=== PATIENT | male | born 1950 | race Caucasian/White ===

== ENCOUNTER 2017-05-13 07:11 | Day surgery (SDC) | payer MEDICARE, BC ==
[2017-05-07 13:08] VITALS: BMI 35.4
[~2017-05-13 07:11] MED LIST: DEXAMETHASONE SOD PHOSPHATE 10 MG/ML 1 ML VIAL IV ONE; HEPARIN SODIUM,PORCINE 5,000 UNIT/ML 1 ML VIAL SQ ONE; MIDAZOLAM 2 MG/2 ML VIAL IV PRN; ONDANSETRON 4 MG/2 ML VIAL IVP ONE; ceFAZolin 2 GM in SODIUM CHLORIDE 0.9% 100 ML IVPB ONE
[2017-05-13] MEDS: LACTATED RINGERS 1,000 ML IV SCH ×2 (07:59→08:25)
[2017-05-13] MEDS ORDERED: PROPOFOL 10 MG/ML 20 ML VIAL IV ONE (08:31)
[2017-05-13] MEDS ORDERED: HEPARIN SODIUM,PORCINE 5,000 UNIT/ML 1 ML VIAL SQ ONE (08:31)
[2017-05-13] MEDS ORDERED: LIDOCAINE 1% INJ 10MG/ML (20 ML MDV) ONE (08:31)
[2017-05-13] MEDS ORDERED: fentaNYL (PF) 50 MCG/ML 2 ML AMP ONE (08:31)
[2017-05-13] MEDS ORDERED: MIDAZOLAM 2 MG/2 ML VIAL ONE (08:31)
[2017-05-13] MEDS ORDERED: SUCCINYLCHOLINE CHLORIDE 100 MG/5 ML SYR IV ONE (08:31)
--- NOTE | 2017-05-13 09:23 | P.OP ---
Date of Procedure: 05/13/17 Preoperative Diagnosis: chronic right breast abcess, lissette-areolar area Postoperative Diagnosis: Same Procedure(s) Performed: Wide debridement right breast chronic abscess Implants: Indications for Procedure: Operative Findings: Description of Procedure: Mr. Zuniga is a 66-year-old white male who has a chronic draining breast abscess in the lissette-aerolar region. He presents for wide debridement of this area. He understands that if this recurs further surgery may be indicated. Patient was taken to the operating room and following induction of anesthesia the right breast was prepped and draped in a sterile fashion. Wide excision of the area of abscess was performed. This was extended up into the aerola and nipple. This was disected down to the muscle of the chest wall. After being assured that the areas of induration were excised the wound was cultured and well irrigated. The deep tissues were closed with 3-0 Vicryl suture. The distal portion of the skin was closed with a 4-0 Monocryl. The wound was packed with quarter-inch iodoform. The skin was reinforced with 4-0 nylon suture. All instrument and sponge counts were correct at the end of the case. The patient tolerated the procedure in stable condition.
--- NOTE | 2017-05-13 09:28 | P.OP ---
Date of Procedure: 05/13/17 Preoperative Diagnosis: Chronic right breast abscess Postoperative Diagnosis: Same Procedure(s) Performed: Debridement chronic right breast abscess Implants: Anesthesia: ALENA Surgeon: Seema Schafer Estimated Blood Loss (ml): 5 IV fluids (ml): 700 Pathology: other (Breast tissue) Condition: stable Disposition: PACU Indications for Procedure: Chronic right breast abscess Operative Findings: Indurated tissue right breast periareolar area Description of Procedure: Patient was taken to the operating room and the right breast was prepped and draped in a sterile fashion. A wedge excision of the area of chronic induration was performed. This was extended into the areola and the under the nipple. The inferior dissection was carried down to the muscle of the chest wall. The indurated tissue was grossly excised. Cultures were obtained. The would was well irrigated. After we were assured that hemostasis was attained the deep tissues were closed with a 3-0 Vicryl suture. This is followed by closure of a portion of the skin with a 4-0 Monocryl and 4-0 nylon. An opening was left which was packed with quarter-inch iodoform. The patient tolerated the procedure in stable condition. All instrument and sponge counts were correct at the end of the case.
[2017-05-13 09:30] VITALS: TEMP 97.8
--- NOTE | 2017-05-13 09:30 | P.DS ---
Providers Attending physician: Seema Schafer Primary care physician: Felisa Garcia Plan - Discharge Summary New Discharge Prescriptions: New HYDROcodone/APAP 5-325MG [[place] 5] 1 - 2 each PO Q4H PRN #20 tab PRN Reason: Pain No Action Simvastatin [Zocor] 80 mg PO HS Multivitamin [Men's Multi-Vitamin] 1 tab PO DAILY Aspirin 1 tab PO Q48H Ubidecarenone [Co Q-10] 100 mg PO DAILY Loratadine [Claritin] 10 mg PO DAILY Cholecalciferol [Vitamin D3] 5,000 unit PO DAILY [place]-3/Dha/Epa/Fish Oil [Fish Oil 500 mg Softgel] 1 each PO HS Mometasone/Formoterol [Dulera 200 Mcg/5 Mcg Inhaler] 2 puff INHALATION BID PRN PRN Reason: COPD SX amLODIPine BESYLATE [Norvasc] 10 mg PO BID Doxycycline Hyclate 100 mg PO BID Losartan Potassium 1 tab PO HS Discharge Medication List Aspirin 1 tab PO Q48H 03/15/15 [History] Multivitamin [Men's Multi-Vitamin] 1 tab PO DAILY 03/15/15 [History] Simvastatin [Zocor] 80 mg PO HS 03/15/15 [History] Cholecalciferol [Vitamin D3] 5,000 unit PO DAILY 11/22/16 [History] Loratadine [Claritin] 10 mg PO DAILY 11/22/16 [History] Mometasone/Formoterol [Dulera 200 Mcg/5 Mcg Inhaler] 2 puff INHALATION BID PRN 11/22/16 [History] [place]-3/Dha/Epa/Fish Oil [Fish Oil 500 mg Softgel] 1 each PO HS 11/22/16 [ History] Ubidecarenone [Co Q-10] 100 mg PO DAILY 11/22/16 [History] Doxycycline Hyclate 100 mg PO BID 05/07/17 [History] amLODIPine BESYLATE [Norvasc] 10 mg PO BID 05/07/17 [History] HYDROcodone/APAP 5-325MG [[place] 5] 1 - 2 each PO Q4H PRN #20 tab 05/13/17 [Rx] Losartan Potassium 1 tab PO HS 05/13/17 [History] Follow up Appointment(s)/Referral(s): Seema Schafer MD [STAFF PHYSICIAN] - 1 Week Activity/Diet/Wound Care/Special Instructions: 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
[2017-05-13] MEDS: HYDROmorphone 1 MG/ML 1 ML SYRINGE IVP PRN ×2 (09:39→09:45)
[2017-05-13] MEDS ORDERED: LACTATED RINGERS 1,000 ML IV ONE (09:52)
[2017-05-13 10:17] VITALS: RESP 16
[2017-05-13 10:48] VITALS: BP 130/64; PULSE 81
== END 2017-05-13 10:56 | disposition home or self-care (01) ==
LOC: OR 07:11
PROVIDERS: ATTEND Surgery
DX: N61.1 Abscess of the breast and nipple (principal); N60.31 Fibrosclerosis of right breast; N60.01 Solitary cyst of right breast; E78.5 Hyperlipidemia, unspecified; J44.9 Chronic obstructive pulmonary disease, unspecified; K21.9 Gastro-esophageal reflux disease without esophagitis; I10 Essential (primary) hypertension; G47.33 Obstructive sleep apnea (adult) (pediatric); F17.200 Nicotine dependence, unspecified, uncomplicated; Z79.2 Long term (current) use of antibiotics; Z79.82 Long term (current) use of aspirin; Z79.51 Long term (current) use of inhaled steroids; Z79.899 Other long term (current) drug therapy
CPT/HCPCS: 88304; 87070; 87205; 87075; 19020; J2250; J1644; J1100; J0690; J2405; J2001; J3010; J1170; J0330; J2704

== ENCOUNTER 2019-05-08 13:27 | Emergency (ER) | payer MEDICARE, BC ==
[2019-05-08 14:02] VITALS: RESP 18; TEMP 97.9
[2019-05-08] MEDS ORDERED: KETOROLAC 30 MG/ML 1 ML VIAL IM STA (14:33)
--- NOTE | 2019-05-08 14:56 | ED ---
General Adult HPI - General Chief complaint: Urogenital Stated complaint: Flank pain Time Seen by Provider: 05/08/19 14:06 Source: patient Mode of arrival: ambulatory Limitations: no limitations - History of Present Illness Initial comments: Patient is a 68-year-old male presents emergency Department with a chief complaint of kidney stones. Patient reports a history of kidney stones with the most recent case 1 year ago. Patient reports she developed right left flank pain earlier this morning that is sharp in nature and has increased in severity throughout the day. Patient reports the pain radiates along to the right-sided groin region. Patient also reports obstructive urinary symptoms but denies hematuria. Patient reports increased urgency but is only able to urinate small amounts. Patient denies nausea, vomiting or diarrhea. - Related Data Home Medications Medication Instructions Recorded Confirmed Aspirin 1 tab PO Q48H 03/15/15 05/13/17 Multivitamin [Men's Multi-Vitamin] 1 tab PO DAILY 03/15/15 05/13/17 Simvastatin [Zocor] 80 mg PO HS 03/15/15 05/13/17 Cholecalciferol [Vitamin D3] 5,000 unit PO DAILY 11/22/16 05/13/17 Loratadine [Claritin] 10 mg PO DAILY 11/22/16 05/13/17 Mometasone/Formoterol [Dulera 200 2 puff INHALATION BID PRN 11/22/16 05/13/17 Mcg/5 Mcg Inhaler] [place]-3/Dha/Epa/Fish Oil [Fish Oil 1 each PO HS 11/22/16 05/13/17 500 mg Softgel] Ubidecarenone [Co Q-10] 100 mg PO DAILY 11/22/16 05/13/17 Doxycycline Hyclate 100 mg PO BID 05/07/17 05/13/17 amLODIPine BESYLATE [Norvasc] 10 mg PO BID 05/07/17 05/13/17 Losartan Potassium 1 tab PO HS 05/13/17 05/13/17 Previous Rx's Medication Instructions Recorded HYDROcodone/APAP 5-325MG [[place] 5] 1 - 2 each PO Q4H PRN #20 tab 05/13/17 Hydrocodone/Acetaminophen [[place] 1 tab PO Q6HR PRN #12 tab 05/08/19 5-325] Tamsulosin [Flomax] 0.4 mg PO DAILY #14 cap 05/08/19 Allergies Allergy/AdvReac Type Severity Reaction Status Date / Time No Known Allergies Allergy Verified 05/08/19 14:01 Review of Systems ROS Statement: Those systems with pertinent positive or pertinent negative responses have been documented in the HPI. ROS Other: All systems not noted in ROS Statement are negative. Past Medical History Past Medical History: Cancer, COPD, Eye Disorder, GERD/Reflux, Hearing Disorder / Deafness, Hyperlipidemia, Hypertension, Prostate Disorder, Skin Disorder, Sleep Apnea/CPAP/BIPAP Additional Past Medical History / Comment(s): HX SKIN CA, NEAR LT TEAR DUCT; Kidney Stones; BPH. NO TX FOR SLEEP [place]NEA. [place], LT WORSE THAN RT. RT BREAST WOUND, RECURRENT. History of Any Multi-Drug Resistant Organisms: None Reported Past Surgical History: Appendectomy, Breast Surgery, Hernia Repair, Tonsillectomy Additional Past Surgical History / Comment(s): "bone chip removed from neck". LT tearduct removed; EXC CATARACT. UPPP. LT BREAST SURG; EXC RT BREAST CYST 04/2016 Past Anesthesia/Blood Transfusion Reactions: Previous Problems w/ Anesthesia, Motion Sickness Additional Past Anesthesia/Blood Transfusion Reaction / Comment(s): VIOLENT, A CHILD ONLY. Past Psychological History: Depression Smoking Status: Current every day smoker Past Alcohol Use History: None Reported Past Drug Use History: None Reported - Past Family History Son(s) Family Medical History: Cancer Additional Family Medical History / Comment(s): LEUKEMIA General Exam - General Exam Comments Initial Comments: General: Well-developed well-nourished distress HEENT: Normocephalic/atraumatic, PERLL, pharynx erythema, swallowing well, EAC no erythema, no exudates, TM clear, no cervical lymph nodes Neck: Supple, nontender, trachea midline Chest/Lungs: Normal respirations, no signs of respiratory distress clear to auscultation bilaterally no wheezes, rales, rhonchi Cardiac: Regular rate and rhythm, normal S1-S2, no murmurs rubs or gallops Abdomen/GI: Negative McBurney point tenderness, negative Rovsing, soft abdomen, right flank pain, mid suprapubic pain, right inguinal pain, no palpable hernia Musculoskeletal: Nontender, full range of motion, no edema, strength equal bilaterally Skin: Warmth, no rashes or lesions, no cyanosis or diaphoresis Neurologic: AAO x 3, CN 2-12 intact, Psychiatric: Mood and affect normal, judgment normal Limitations: no limitations Course Vital Signs 05/08/19 13:59 Temperature 97.9 F Pulse Rate 71 Respiratory 18 Rate Blood Pressure 160/82 O2 Sat by Pulse 94 L Oximetry Medical Decision Making - Lab Data Result diagrams: 05/08/19 14:48 05/08/19 14:48 Lab Results 05/08/19 05/08/19 05/08/19 Range/Units 14:48 14:48 14:48 WBC 13.2 H (3.8-10.6) k/uL RBC 4.75 (4.30-5.90) m/uL Hgb 15.3 (13.0-17.5) gm/dL Hct 45.7 (39.0-53.0) % MCV 96.4 (80.0-100.0) fL MCH 32.3 (25.0-35.0) pg MCHC 33.5 (31.0-37.0) g/dL RDW 14.4 (11.5-15.5) % Plt Count 213 (150-450) k/uL Sodium 142 (137-145) mmol/L Potassium 4.9 (3.5-5.1) mmol/L Chloride 109 H (98-107) mmol/L Carbon Dioxide 23 (22-30) mmol/L Anion Gap 10 mmol/L BUN 13 (9-20) mg/dL Creatinine 1.13 (0.66-1.25) mg/dL Est GFR (CKD-EPI)AfAm 77 (>60 ml/min/1.73 sqM) Est GFR (CKD-EPI)NonAf 66 (>60 ml/min/1.73 sqM) Glucose 99 (74-99) mg/dL Calcium 9.6 (8.4-10.2) mg/dL Total Bilirubin 1.2 (0.2-1.3) mg/dL AST 50 (17-59) U/L ALT 9 L (21-72) U/L Alkaline Phosphatase 140 H (38-126) U/L Total Protein 7.4 (6.3-8.2) g/dL Albumin 4.8 (3.5-5.0) g/dL Urine Color Yellow Urine Appearance Clear (Clear) Urine pH 7.5 (5.0-8.0) Ur Specific [place] 1.021 (1.001-1.035) Urine Protein Trace H (Negative) Urine Glucose (UA) Negative (Negative) Urine Ketones Negative (Negative) Urine Blood Large H (Negative) Urine Nitrite Negative (Negative) Urine Bilirubin Negative (Negative) Urine Urobilinogen <2.0 (<2.0) mg/dL Ur Leukocyte Esterase Negative (Negative) Urine RBC >182 H (0-5) /hpf Urine WBC 1 (0-5) /hpf Urine Mucus Rare H (None) /hpf Disposition Clinical Impression: Kidney stones Disposition: HOME SELF-CARE Condition: Stable Instructions (If sedation given, give patient instructions): Kidney Stones (ED) Additional Instructions: Please follow up with urology. Please take prescribed medication as directed. Please return to emergency department if symptoms worsen. Prescriptions: Tamsulosin [Flomax] 0.4 mg PO DAILY #14 cap Hydrocodone/Acetaminophen [[place] 5-325] 1 tab PO Q6HR PRN #12 tab PRN Reason: Pain Is patient prescribed a controlled substance at d/c from ED?: No Referrals: Felisa Garcia MD [Primary Care Provider] - 1-2 days Toby Carreon MD [STAFF PHYSICIAN] - 1-2 days Time of Disposition: 16:59
[2019-05-08 15:14] LABS: Appearance,Urine Clear (Clear); Bilirubin,Urine Negative (Negative); Blood,Urine Large (Negative); Color,Urine Yellow; Glucose,Urine (UA) Negative (Negative); Ketones,Urine Negative (Negative); Leukocyte Esterase,Urine Negative (Negative); Mucus,Urine Rare /hpf; Nitrite,Urine Negative (Negative); PH, Urine 7.5 (5.0-8.0); Protein,Urine Trace (Negative); RBC,Urine >182 /hpf (0-5); Specific Gravity,Urine 1.021 (1.001-1.035); Urobilinogen,Urine <2.0 mg/dL (<2.0); WBC,Urine 1 /hpf (0-5)
[2019-05-08 15:16] LABS: HCT 45.7 % (39.0-53.0); HGB 15.3 gm/dL (13.0-17.5); MCH 32.3 pg (25.0-35.0); MCHC 33.5 g/dL (31.0-37.0); MCV 96.4 fL (80.0-100.0); Mean Platelet Volume 7.9; Platelet Count 213 k/uL (150-450); RBC 4.75 m/uL (4.30-5.90); RDW 14.4 % (11.5-15.5); WBC 13.2 k/uL (3.8-10.6)
[2019-05-08 15:37] LABS: Albumin 4.8 g/dL (3.5-5.0); Calcium 9.6 mg/dL (8.4-10.2); Total Bilirubin 1.2 mg/dL (0.2-1.3); Total Protein 7.4 g/dL (6.3-8.2)
[2019-05-08 15:39] LABS: Potassium 4.9 mmol/L (3.5-5.1)
--- NOTE | 2019-05-08 16:41 | CT ---
EXAMINATION TYPE: CT abdomen pelvis wo con DATE OF EXAM: 05/08/2019 COMPARISON: 03/15/2015 HISTORY: 68-year-old male Right flank pain and dysuria. CT DLP: 920.3 mGycm. Automated exposure control for dose reduction was used. TECHNIQUE: Contiguous axial scanning of the abdomen and pelvis without IV contrast. Coronal and sagit dodie reconstructions performed. FINDINGS: Heart upper limits of normal in size without pericardial effusion. Some patchy atelectasis or scarrin g at the inferior lingula. No pleural effusion. Small hiatal hernia. Noncontrast appearance of the liver, gallbladder, adrenal glands, spleen, a mildly atrophic pancreas show no gross abnormality. Subtle 1.4 cm hypodense lesion in lateral cortex of the left kidney inadequately characterized, proba ble cortical cyst. Consider ultrasound follow-up nonemergently to attempt further characterization. There are 5 nonobstructing left renal calculi measuring up to 5 mm. Duplex right renal collecting system and ureter seem to come together at the midureter level. There is a punctate 3 mm calculus at the right UVJ with [id number] hydronephrosis and hydrouret er. No dilated small bowel, free fluid, or free air. No mesenteric or retroperitoneal lymphadenopathy. Le ft-sided colonic diverticulosis, greatest in the sigmoid colon. No pericolonic inflammatory change. Bladder nondistended. Prostate gland measures 4.7 cm wide. Circumferential bladder wall thickening. N o abnormal fluid collection the pelvis or pelvic lymphadenopathy. Degenerative changes of the hips. Additional degenerative changes mid to lower lumbar spine. IMPRESSION: 1. A 3 mm calculus at the right UVJ with [id number] obstructive uropathy. Incidental duplex ri ght renal collecting system. The 2 ureters join at the mid ureteric level. 2. Nonobstructing left sided nephrolithiasis measuring up to 5 mm. 3. Left sided colonic diverticulosis, greatest in the sigmoid colon. 4. Circumferential bladder wall thickening may relate to nondistention or cystitis. Clinically corre late. 5. Small hiatal hernia. 6. A 1.4 cm hypodense cortical lesion lateral left kidney. Nonemergent renal ultrasound follow-up ca n attempt further characterization. A cyst is suspected.
[2019-05-08] MEDS ORDERED: ACET/COD 300 MG/30 MG STARTER PACK 6 TAB BTL PO STA (16:57)
[2019-05-08 17:15] VITALS: BP 188/93; PULSE 66
== END 2019-05-08 17:20 | disposition home or self-care (01) ==
LOC: EC 13:27
DX: N20.0 Calculus of kidney (principal); K57.30 Diverticulosis of large intestine without perforation or abscess without bleeding; K44.9 Diaphragmatic hernia without obstruction or gangrene; I10 Essential (primary) hypertension; E78.5 Hyperlipidemia, unspecified; G47.30 Sleep apnea, unspecified; Z79.82 Long term (current) use of aspirin; Z79.899 Other long term (current) drug therapy; Z85.828 Personal history of other malignant neoplasm of skin; Z87.442 Personal history of urinary calculi
CPT/HCPCS: 36415; 80053; 85027; 81001; 74176; 99284; 96372; J1885

== ENCOUNTER 2021-04-23 07:48 | Day surgery (SDC) | payer MEDICARE, BC ==
[2021-04-19 14:10] VITALS: BMI 34.0
[~2021-04-23 07:48] MED LIST changes: -DEXAMETHASONE SOD PHOSPHATE 10 MG/ML 1 ML VIAL IV ONE; -HEPARIN SODIUM,PORCINE 5,000 UNIT/ML 1 ML VIAL SQ ONE; +LACTATED RINGERS 1,000 ML IV SCH; -MIDAZOLAM 2 MG/2 ML VIAL IV PRN; -ONDANSETRON 4 MG/2 ML VIAL IVP ONE; -ceFAZolin 2 GM in SODIUM CHLORIDE 0.9% 100 ML IVPB ONE
[2021-04-23] MEDS ORDERED: LACTATED RINGERS 1,000 ML IV ONE (08:10)
[2021-04-23] MEDS ORDERED: LIDOCAINE 1% (10MG/ML) FOR IV START SQ ONE (08:26)
[2021-04-23 08:28] VITALS: RESP 16; TEMP 98
[2021-04-23] MEDS ORDERED: PROPOFOL 10 MG/ML 20 ML VIAL IV ONE (08:50)
[2021-04-23] MEDS ORDERED: LIDOCAINE 1% INJ 10MG/ML (20 ML MDV) ONE (08:50)
[2021-04-23 09:18] VITALS: BP 132/77; PULSE 71
--- NOTE | 2021-04-23 09:18 | P.PCN ---
Date of Procedure: 04/23/21 Description of Procedure: BRIEF HISTORY: Patient is a 70-year-old male presenting for outpatient colonoscopy for screening for malignant neoplasm of the colon. He reports last colonoscopy was 11 years scope. He denies any change in bowel habits. He does note some intermittent bright red blood per rectum. No family history of colon cancer. PROCEDURE PERFORMED: Colonoscopy with polypectomy. PREOPERATIVE DIAGNOSIS: Screening for malignant neoplasm of the colon, patient reports last colonoscopy 11 years ago. ESTIMATED BLOOD LOSS: Minimal. IV sedation per Anesthesia. PROCEDURE: After informed consent was obtained, the patient, was brought into the endoscopy unit. IV sedation was administered by Anesthesia under continuous monitoring. Digital rectal examination was normal. Initially the Olympus CF-190 flexible video colonoscope was then inserted in the rectum, gradually advanced into the cecum without any difficulty. Careful examination was performed as the scope was gradually being withdrawn. Ileocecal valve and the appendiceal orifice were visualized and appeared normal. Prep was excellent. Mucosa of the cecum, ascending colon, transverse colon, descending colon, sigmoid colon, and rectum appeared normal, except for scattered small and large mouth diverticula in the left colon. Diminutive 2 mm transverse colon polyp removed with cold forcep polypectomy. Retroflexion was performed in the rectum and no lesions were seen and internal hemorrhoids were noted. The patient tolerated the procedure well. IMPRESSION: Diminutive transverse colon polyp removed with cold forcep polypectomy. Moderate left colonic diverticulosis. Internal hemorrhoids. RECOMMENDATIONS: Findings of this examination were discussed with the patient and his family. Okay to resume diet. Okay to resume medications. Await pathology from polypectomy. Recommend repeat colonoscopy in 7 years if medically stable at that time and amenable.
== END 2021-04-23 10:09 | disposition home or self-care (01) ==
LOC: ORWHC2ENDO 07:48
PROVIDERS: ATTEND Internal Medicine
DX: Z12.11 Encounter for screening for malignant neoplasm of colon (principal); K57.90 Diverticulosis of intestine, part unspecified, without perforation or abscess without bleeding; K64.8 Other hemorrhoids; D12.3 Benign neoplasm of transverse colon; I10 Essential (primary) hypertension; E78.5 Hyperlipidemia, unspecified; G47.33 Obstructive sleep apnea (adult) (pediatric); F17.210 Nicotine dependence, cigarettes, uncomplicated; J44.9 Chronic obstructive pulmonary disease, unspecified; Z79.899 Other long term (current) drug therapy; Z79.82 Long term (current) use of aspirin
CPT/HCPCS: 88305; 45380; J2001; J2704